=== PATIENT | female | born 1980 | race Caucasian/White ===

== ENCOUNTER 2016-11-11 09:27 | Emergency (ER) | payer BC ==
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
[~2016-11-11 09:27] MED LIST: ATIVAN2 M1 PO; ELIMITE60 G1 TOP; NO MEDICATIONS; NORCO1 TAB 10/3 PO; ZYRTEC
== END 2016-11-11 12:37 | disposition home or self-care (01) ==
LOC: SED 09:27
DX: S06.0X0A Concussion without loss of consciousness, initial encounter (principal); S13.4XXA Sprain of ligaments of cervical spine, initial encounter; Z86.14 Personal history of Methicillin resistant Staphylococcus aureus infection; Y04.0XXA Assault by unarmed brawl or fight, initial encounter; Y92.511 Restaurant or cafe as the place of occurrence of the external cause
CPT/HCPCS: 70450; 72125; 96372; 99284; J1885